=== PATIENT | female | born 1940 ===

== ENCOUNTER 2016-05-18 16:02 | Emergency (ER) | payer MEDICARE, MEDICAID ==
[2016-05-18 16:09] VITALS: BMI 21.1
[2016-05-18 16:13] VITALS: TEMP 97.5
--- NOTE | 2016-05-18 17:16 | C.PDOC ---
History Of Present Illness 76-year-old female, PMHx includes Anxiety, Vertigo on Meclizine, Cardiac Arrhythmia, and Depression, presents to the emergency department accompanied by daughter. Patient had a stress test in [place] five days ago, after which she was discharged home. Patient woke up that night with dizziness, falling on chest and sustained an injury to her face. States her dizziness is similar to prior vertigo symptoms. Patient is currently complaining of neck pain, headache , left sided chest pain that is pleuritic and reproducible, and right thigh pain. Patient denies nausea/vomiting, dizziness, visual changes, speech changes , weakness/numbness, or any other associated symptoms. No other complaints at this time. Time Seen by Provider: 05/18/16 16:39 Chief Complaint (Nursing): Chest Pain History Per: Patient History/Exam Limitations: no limitations Onset/Duration Of Symptoms: Days Current Symptoms Are (Timing): Still Present Severity: Moderate Past Medical History Reviewed: Historical Data, Nursing Documentation, Vital Signs Vital Signs: Last Vital Signs Temp 97.5 F L 05/18/16 16:10 Pulse 49 L 05/18/16 16:10 Resp 22 05/18/16 16:10 BP 162/89 H 05/18/16 16:10 Pulse Ox 100 05/18/16 18:42 - Medical History PMH: Anxiety, Cardia Arrhythmia (HOSPITALIZED 1 MONTH AGO FOR SLOW HEART RATE.) , Depression, Pneumonia (HOSPITALIZED 1 MONTH AGO) Denies: Chronic Kidney Disease Surgical History: Appendectomy, Cholecystectomy, Tonsillectomy - [facility] Procedures COLONOSCOPY (01/06/02) ESOPHAGOGASTRODUODENOSCOPY [EGD] W/CLOSED BIOPSY (01/06/02) PSYCHIAT DRUG THERAP NEC (11/16/00) Family History: States: Unknown Family Hx - Social History Hx Tobacco Use: Yes Hx Alcohol Use: No Hx Substance Use: No - Immunization History Hx Tetanus Toxoid Vaccination: No Hx Influenza Vaccination: No Hx Pneumococcal Vaccination: No Review Of Systems Except As Marked, All Systems Reviewed And Found Negative. Constitutional: Negative for: Fever, Chills Cardiovascular: Positive for: Chest Pain Respiratory: Negative for: Shortness of Breath Gastrointestinal: Negative for: Nausea, Vomiting Musculoskeletal: Positive for: Neck Pain, Leg Pain Skin: Negative for: Rash Neurological: Positive for: Headache Physical Exam - Physical Exam Appears: Non-toxic, No Acute Distress Skin: Warm, Dry, No Rash Head: Atraumatic, Normacephalic Eye(s): bilateral: Normal Inspection, PERRL, EOMI Nose: Normal, No Epistaxis, No Tenderness, Other (No swelling. No epistaxis. ) Oral Mucosa: Moist Lips: Swelling, No Laceration, Other (Left upper lip is swollen. No lacerations. ) Neck: No Midline Cervical Tenderness, Paracervical Tenderness, No Step Off Deformity Chest: No Deformity, Tenderness (Tenderness to palpation. Left lateral chest. Ribs 4 an 5), No Ecchymosis Cardiovascular: Rhythm Regular Respiratory: No Accessory Muscle Use, No Wheezing Gastrointestinal/Abdominal: Soft, No Tenderness Extremity: Other (Right upper femur tender mildly. No pain with pelvic rocking. No hip deformity) Neurological/Psych: Oriented x3, Normal Speech ED Course And Treatment - Laboratory Results Result Diagrams: 05/18/16 17:14 05/18/16 17:14 O2 Sat by Pulse Oximetry: 100 - CT Scan/US CT HEAD Other Rad Studies (CT/US): Read By Radiologist, Radiology Report Reviewed CT/US Interpretation: Accession No. : [id number]. Patient Name / ID : BLANCA Shrestha / [id number]. Exam Date : 05/18/2016 17:39:53 ( Approved ). Study Comment : Sex / Age : F / 76Y. Creator : Yaneli Modi MD. Dictator : Yaneli Modi MD. Marketing Intelligence Manager : Mechanical Ordnance Assembler : Yaneli Modi MD. Approver2 : Report Date : 05/18/2016 18:07:02. My Comment : . PROCEDURE: CT HEAD WITHOUT CONTRAST. HISTORY: S/P FALL. COMPARISON: Noncontrast head CT performed 02/25/16. TECHNIQUE: Axial computed tomography images were obtained through the head/brain without intravenous contrast. Radiation dose: Total exam DLP = 775.86 mGy-cm. This CT exam was performed using one or more of the following dose reduction techniques: Automated exposure control, adjustment of the mA and/or kV according to patient size, and/ or use of iterative reconstruction technique. FINDINGS: HEMORRHAGE: No intracranial hemorrhage. BRAIN: Diffuse atrophy with prominence of the ventricles and sulci noted. No mass effect or edema. Intracranial atherosclerotic calcifications. Scattered periventricular and subcortical white matter hypodensities, which are nonspecific, but often seen with chronic microvascular ischemic disease. Please note that MRI with diffusion imaging is more sensitive in the detection of acute ischemic event. VENTRICLES: No hydrocephalus. CALVARIUM: Unremarkable. PARANASAL SINUSES: Unremarkable as visualized. No significant inflammatory changes. MASTOID AIR CELLS: Unremarkable as visualized. No inflammatory changes. OTHER FINDINGS: None. IMPRESSION: Generalized atrophy. Scattered nonspecific white matter changes. CT orbits Other Rad Studies (CT/US): Read By Radiologist, Radiology Report Reviewed CT/US Interpretation: Accession No. : [id number]. Patient Name / ID : BLANCA Shrestha / [id number]. Exam Date : 05/18/2016 17:42:21 ( Approved ). Study Comment : Sex / Age : F / 76Y. Creator : Yaneli Modi MD. Dictator : Yaneli Modi MD. Marketing Intelligence Manager : Mechanical Ordnance Assembler : Yaneli Modi MD. Approver2 : Report Date : 05/18/2016 18:33:57. My Comment : . CT orbits without IV contrast. Indication: Status post fall, rule out facial fracture. Comparison: None available. Technique: Axial computed tomography images were obtained of the orbits without the use of intravenous contrast. Coronal and sagittal reformatted images were generated and reviewed. This CT exam was performed using 1 or more of the falling dose reduction techniques: Automated exposure control, adjustment of the MAA and/or kV according to patient size, and/or use of iterative reconstruction technique. Radiation dose: Total exam DLP = 750.73 mGy-cm. Findings: The facial bones appear intact without acute displaced fracture identified. The orbits appear unremarkable. The temporomandibular joints are located. The included portions of the mastoid air cells appear clear. The paranasal sinuses appear clear without air-fluid levels. The visualized brain appears unremarkable. Impression : No acute displaced fracture identified. Progress Note: Bloodwork, XR B/L Hips and ribs, CT Head/Orbits ordered and reviewed. Patient treated with PO Tylenol. Disposition Counseled Patient/Family Regarding: Studies Performed, Diagnosis, Need For Followup, Rx Given - Disposition Referrals: Esthela Ferguson DO [Doctor Osteopathy] - Abel Orozco MD [Staff Provider] - [facility] [Outside] Disposition: HOME/ ROUTINE Disposition Time: 18:40 Condition: STABLE Additional Instructions: FOLLOW UP WITH YOUR DOCTOR IN 1-2 DAYS USE MEDICATION NEEDED FOR PAIN RETURN TO ER IF SYMPTOMS WORSEN Prescriptions: Acetaminophen [Tylenol 325mg tab] 650 mg PO Q6 PRN #30 tab PRN Reason: pain/fever Acetaminophen with Codeine [Tylenol with Codeine #3 Tablet] 1 each PO Q6 PRN # 12 tablet PRN Reason: pain Instructions: Chest Wall Pain (ED), Facial Contusion (ED), Hip Sprain (ED) Print Language: IRISH - POA Present On Arrival: Falls Or Trauma - Clinical Impression Clinical Impression: Chest wall contusion, Contusion, hip, Contusion, lip, Peripheral vertigo - Scribe Statement The provider has reviewed the documentation as recorded by the Ryan Orozco All medical record entries made by the Carolyneibdaniele were at my direction and personally dictated by me. I have reviewed the chart and agree that the record accurately reflects my personal performance of the history, physical exam, medical decision making, and the department course for this patient. I have also personally directed, reviewed, and agree with the discharge instructions and disposition.
[2016-05-18 17:25] LABS: BASO % 0.7 % (0.0-2.0); EOS % 0.5 % (0.0-4.0); HEMATOCRIT 38.3 % (34.0-47.0); LYMPH # 1.7 K/uL (1.0-4.3); LYMPH % 29.8 % (20.0-40.0); MEAN CELL VOLUME 85.5 fL (81.0-99.0); MEAN CORPUSCULAR HEMOGLOBIN 27.5 pg (27.0-31.0); MEAN CORPUSCULAR HGB CONC 32.2 g/dL (33.0-37.0); MEAN PLATELET VOLUME 8.9 fL (7.2-11.7); MONO # 0.4 K/uL (0.0-0.8); MONO % 7.5 % (0.0-10.0); RED CELL DISTRIBUTION WIDTH 13.8 % (11.5-14.5); WHITE BLOOD COUNT 5.7 K/uL (4.8-10.8)
[2016-05-18 17:31] LABS: CHLORIDE 101 mmol/L (98-107)
[2016-05-18 17:32] LABS: SODIUM 143 mmol/L (132-148)
[2016-05-18 17:34] LABS: ALB/GLOB RATIO 1.4 (1.0-2.1); ALKALINE PHOSPHATASE 75 U/L (38-126); ALT/SGPT 16 U/L (9-52); AST/SGOT 23 U/L (14-36); BILIRUBIN,TOTAL 0.3 mg/dL (0.2-1.3); BLOOD UREA NITROGEN 5 mg/dL (7-17); CARBON DIOXIDE 27 mmol/L (22-30); GFR AFRICAN-AMERICAN > 60; TOTAL PROTEIN 6.8 g/dL (6.3-8.3)
[2016-05-18 17:35] LABS: CALCIUM 9.5 mg/dl (8.6-10.4); GLUCOSE,RANDOM 95 mg/dL (65-105)
--- NOTE | 2016-05-18 18:09 | CT ---
PROCEDURE: CT HEAD WITHOUT CONTRAST. HISTORY: S/P FALL COMPARISON: Noncontrast head CT performed 02/25/16 TECHNIQUE: Axial computed tomography images were obtained through the head/brain without intravenous contrast. Radiation dose: Total exam DLP = 775.86 mGy-cm. This CT exam was performed using one or more of the following dose reduction techniques: Automated exposure control, adjustment of the mA and/or kV according to patient size, and/or use of iterative reconstruction technique. FINDINGS: HEMORRHAGE: No intracranial hemorrhage. BRAIN: Diffuse atrophy with prominence of the ventricles and sulci noted. No mass effect or edema. Intracranial atherosclerotic calcifications. Scattered periventricular and subcortical white matter hypodensities, which are nonspecific, but often seen with chronic microvascular ischemic disease. Please note that MRI with diffusion imaging is more sensitive in the detection of acute ischemic event. VENTRICLES: No hydrocephalus. CALVARIUM: Unremarkable. PARANASAL SINUSES: Unremarkable as visualized. No significant inflammatory changes. MASTOID AIR CELLS: Unremarkable as visualized. No inflammatory changes. OTHER FINDINGS: None. IMPRESSION: Generalized atrophy. Scattered nonspecific white matter changes.
--- NOTE | 2016-05-18 18:35 | CT ---
CT orbits without IV contrast Indication: Status post fall, rule out facial fracture Comparison: None available. Technique: Axial computed tomography images were obtained of the orbits without the use of intravenous contrast. Coronal and sagittal reformatted images were generated and reviewed. This CT exam was performed using 1 or more of the falling dose reduction techniques: Automated exposure control, adjustment of the MAA and/or kV according to patient size, and/or use of iterative reconstruction technique. Radiation dose: Total exam DLP = 750.73 mGy-cm. Findings: The facial bones appear intact without acute displaced fracture identified. The orbits appear unremarkable. The temporomandibular joints are located. The included portions of the mastoid air cells appear clear. The paranasal sinuses appear clear without air-fluid levels. The visualized brain appears unremarkable. Impression: No acute displaced fracture identified.
[2016-05-18 19:06] VITALS: BP 168/76; PULSE 45; RESP 18; O2SAT 98
--- NOTE | 2016-05-19 09:03 | RAD ---
PROCEDURE: HISTORY: S/P FALL, R/O FX HIP/PELVIS COMPARISON: 03/14/2012 TECHNIQUE: AP view of the pelvis and applicable frog leg views obtained. FINDINGS: Generalized osteopenia. No fractures seen. Bilateral axial hip joint space narrowing minimal bilateral acetabular spurring. Moderate to severe osteitis pubis. Left L5-S1 Modic facet arthrosis Interval 3 x 7 mm homogeneous calcification projecting just superior to the left greater trochanteric perhaps calcific bursitis or left gluteal calcific tendinosis here an osseous avulsion is believe less likely the surrounding thin fat planes appear intact Distended bladder. Bilateral hemipelvic phleboliths IMPRESSION: No interval fracture dislocation. Osteoarthrosis If symptoms persist/warrant consider MRI.
--- NOTE | 2016-05-19 09:13 | RAD ---
PROCEDURE: Radiographs of the chest and bilateral ribs HISTORY: S/P FALL ON CHEST, CHEST PAIN, R/O LEFT RIB FX COMPARISON: 02/25/2016 chest x-ray TECHNIQUE: Frontal radiograph of the chest and multiple oblique radiographs of the bilateral ribs were obtained. FINDINGS: RIGHT RIBS: No fracture or focal lesion visualized. LEFT RIBS: No fracture or focal lesion visualized. LUNGS: Bilateral benign calcified granulomas appear similar PLEURA: No pneumothorax or pleural fluid. CARDIOVASCULAR: Mild cardiomegaly as before. Tortuous unfolded/ ectatic thoracic aorta No pulmonary vascular congestion. OTHER FINDINGS: Right upper quadrant post cholecystectomy clips IMPRESSION: . No rib fracture. No interval cardiopulmonary pathology suggested
--- NOTE | 2016-06-04 14:43 | CARD ---
APPROVED REPORT EKG Measurement Heart [id number] <Conclusion> Sinus bradycardia Otherwise normal ECG
== END 2016-05-18 19:10 | disposition home or self-care (01) ==
LOC: C.ER 16:02
DX: S20.212A Contusion of left front wall of thorax, initial encounter (principal); S70.01XA Contusion of right hip, initial encounter; W19.XXXA Unspecified fall, initial encounter; Y92.009 Unspecified place in unspecified non-institutional (private) residence as the place of occurrence of the external cause; H81.399 Other peripheral vertigo, unspecified ear

== ENCOUNTER 2016-11-02 15:22 | Emergency (ER) | payer OTHER, MEDICAID ==
[2016-11-02 15:22] VITALS: BMI 21.3
--- NOTE | 2016-11-02 15:43 | C.PDOC ---
History Of Present Illness 76 y/o female, history of anxiety and depression, recently diagnosed with CAD with cardiac stent placed last May, known history of bradycardia, presents to ER with c/o chest pain associated with cough, green sputum, and low grade fever. Now, patient c/o dizziness, lightheadedness, nausea, and 1 episode of vomiting this morning. Patient was brought to ER by daughter who felt that she did not look well when she visited her this morning. Patient also c/o "total body pain" for several months. Denies feeling SOB at the moment; states SOB presents in spasms when coughing. Time Seen by Provider: 11/02/16 15:25 Chief Complaint (Nursing): Chest Pain History Per: Patient, Family History/Exam Limitations: no limitations Onset/Duration Of Symptoms: Days Current Symptoms Are (Timing): Still Present Recent travel outside of the [place]: No Past Medical History Reviewed: Historical Data, Nursing Documentation, Vital Signs Vital Signs: Last Vital Signs Temp 98.1 F 11/02/16 18:12 Pulse 46 L 11/02/16 18:12 Resp 13 11/02/16 18:12 BP 154/72 H 11/02/16 18:12 Pulse Ox 97 11/02/16 18:12 - Medical History PMH: Anxiety, Cardia Arrhythmia (HOSPITALIZED 1 MONTH AGO FOR SLOW HEART RATE.) , Depression, Pneumonia (HOSPITALIZED 1 MONTH AGO) Surgical History: Appendectomy, Cholecystectomy, Tonsillectomy Denies: Pacemaker - [facility] Procedures COLONOSCOPY (01/06/02) ESOPHAGOGASTRODUODENOSCOPY [EGD] W/CLOSED BIOPSY (01/06/02) PSYCHIAT DRUG THERAP NEC (11/16/00) Family History: States: Unknown Family Hx - Social History Hx Tobacco Use: Yes Hx Alcohol Use: No Hx Substance Use: No - Immunization History Hx Tetanus Toxoid Vaccination: No Hx Influenza Vaccination: No Hx Pneumococcal Vaccination: No Review Of Systems Except As Marked, All Systems Reviewed And Found Negative. Constitutional: Positive for: Malaise. Negative for: Fever, Chills Cardiovascular: Positive for: Chest Pain Respiratory: Positive for: Cough, Sputum. Negative for: Shortness of Breath Gastrointestinal: Positive for: Nausea, Vomiting. Negative for: Abdominal Pain Musculoskeletal: Negative for: Neck Pain Skin: Negative for: Rash Neurological: Positive for: Dizziness. Negative for: Headache Physical Exam - Physical Exam Appears: Non-toxic, Other (uncomfortable, no acute distress) Skin: Warm, Dry Head: Atraumatic, Normacephalic Oral Mucosa: Moist Chest: Symmetrical Cardiovascular: Rhythm Regular (heidi) Respiratory: Normal Breath Sounds, No Accessory Muscle Use, No Rales, No Rhonchi , No Wheezing Gastrointestinal/Abdominal: Soft, No Tenderness, No Guarding, No Rebound Back: Normal Inspection Extremity: Normal ROM, No Pedal Edema, Capillary Refill (< 2 sec.) Extremity: Bilateral: Normal Color And Temperature Neurological/Psych: Oriented x3, Normal Speech, Normal Cognition ED Course And Treatment - Laboratory Results Result Diagrams: 11/02/16 16:16 11/02/16 16:16 Lab Interpretation: Normal ECG: Interpreted By Me ECG Rhythm: Sinus Bradycardia ECG Interpretation: No Acute Changes O2 Sat by Pulse Oximetry: 98 (RA) Pulse Ox Interpretation: Normal - Radiology CXR: Viewed By Me, Read By Radiologist CXR Interpretation: Yes: No Acute Disease Progress Note: EKG, CxR, bloodwork ordered and reviewed. Patient treated with 1 liter of saline. Reevaluation Time: 17:02 Reassessment Condition: Improved (Patient remains comfortable in ED without evidence of cough or shortness of breath.) Disposition Counseled Patient/Family Regarding: Studies Performed, Diagnosis, Need For Followup, Rx Given - Disposition Disposition: HOME/ ROUTINE Disposition Time: 18:18 Condition: IMPROVED Additional Instructions: Follow up with your doctor in the office as an out patient. Please return to the ED for any worsening of symptoms, chest pain or shortness of breath. Prescriptions: Amoxicillin 875 mg PO BID #20 tablet Instructions: Upper Respiratory Infection (ED) Forms: [employer] (Georgian) - Clinical Impression Clinical Impression: Upper respiratory infection - Scribe Statement The provider has reviewed the documentation as recorded by the Scribe SM All medical record entries made by the Scribe were at my direction and personally dictated by me. I have reviewed the chart and agree that the record accurately reflects my personal performance of the history, physical exam, medical decision making, and the department course for this patient. I have also personally directed, reviewed, and agree with the discharge instructions and disposition.
[2016-11-02 16:34] LABS: CHLORIDE 109 mmol/L (98-107); SODIUM 142 mmol/L (132-148)
[2016-11-02 16:35] LABS: POTASSIUM 3.6 mmol/L (3.6-5.2)
[2016-11-02 16:37] LABS: ALB/GLOB RATIO 1.3 (1.0-2.1); ALKALINE PHOSPHATASE 81 U/L (38-126); ALT/SGPT 21 U/L (9-52); AST/SGOT 23 U/L (14-36); BASO % 0.6 % (0.0-2.0); BILIRUBIN,TOTAL 0.7 mg/dL (0.2-1.3); BLOOD UREA NITROGEN 11 mg/dL (7-17); CALCIUM 10.1 mg/dl (8.6-10.4); CARBON DIOXIDE 20 mmol/L (22-30); GFR AFRICAN-AMERICAN > 60; GLUCOSE,RANDOM 75 mg/dL (65-105); MONO # 0.6 K/uL (0.0-0.8); TOTAL PROTEIN 7.6 g/dL (6.3-8.3); WHITE BLOOD COUNT 5.6 K/uL (4.8-10.8)
[2016-11-02 16:40] LABS: EOS % 0.6 % (0.0-4.0); HEMATOCRIT 40.7 % (34.0-47.0); LYMPH % 35.9 % (20.0-40.0); MEAN CELL VOLUME 86.6 fL (81.0-99.0); MEAN CORPUSCULAR HEMOGLOBIN 28.4 pg (27.0-31.0); MEAN CORPUSCULAR HGB CONC 32.8 g/dL (33.0-37.0); MEAN PLATELET VOLUME 8.7 fL (7.2-11.7); MONO % 10.2 % (0.0-10.0); NRBC % 0.1 % (0.0-2.0); RED CELL DISTRIBUTION WIDTH 13.6 % (11.5-14.5)
[2016-11-02] MEDS ORDERED: Sodium Chloride 0.9% 1,000 ML IV ONE (16:46)
--- NOTE | 2016-11-02 16:53 | RAD ---
HISTORY: chest pain COMPARISON: Chest x-ray performed 05/18/16 TECHNIQUE: Chest, one view. FINDINGS: Examination limited by habitus. LUNGS: Biapical pleural thickening. No focal consolidation. 4 mm calcified granuloma, right mid lung zone. Additional nonspecific calcifications/granulomas within the right upper lobe. Please note that chest x-ray has limited sensitivity for the detection of pulmonary masses. PLEURA: No significant pleural effusion identified. No definite pneumothorax . CARDIOVASCULAR: Heart size appears within limits. Ectatic aorta. Atherosclerotic calcifications. OSSEOUS STRUCTURES: Degenerative changes. VISUALIZED UPPER ABDOMEN: Unremarkable. OTHER FINDINGS: None. IMPRESSION: No focal consolidation, significant pleural effusion, or definite pneumothorax identified.
[2016-11-02 18:13] VITALS: BP 154/72; PULSE 46; RESP 13; TEMP 98.1
[2016-11-02 18:19] VITALS: O2SAT 98
== END 2016-11-02 18:35 | disposition home or self-care (01) ==
LOC: C.ER 15:22
DX: J06.9 Acute upper respiratory infection, unspecified (principal); I25.10 Atherosclerotic heart disease of native coronary artery without angina pectoris; I49.9 Cardiac arrhythmia, unspecified; F17.210 Nicotine dependence, cigarettes, uncomplicated
CPT/HCPCS: 71010; 80053; 83690; 84484; 85025; 87040; 96360; 99285; J7040

== ENCOUNTER 2017-02-22 15:30 | Emergency (ER) | payer MEDICARE, MEDICAID ==
[2017-02-22 15:30] VITALS: BMI 21.3
[2017-02-22 16:02] VITALS: PULSE 60; O2SAT 98
--- NOTE | 2017-02-22 16:25 | C.PDOC ---
History Of Present Illness Patient complains she slipped and fell in bathtub 5 days ago and hit her left side of chest on bathtub. Patient complains of pain to ribs. She states pain worse with movement and deep inspiration. Denies any fever, cough, sputum. Time Seen by Provider: 02/22/17 16:22 Chief Complaint (Nursing): Rib Injury History Per: Patient History/Exam Limitations: no limitations Onset/Duration Of Symptoms: Days (5) Past Medical History Reviewed: Historical Data, Nursing Documentation, Vital Signs Vital Signs: Last Vital Signs Temp 98.5 F 02/22/17 17:26 Pulse 60 02/22/17 17:26 Resp 18 02/22/17 17:26 BP 144/81 02/22/17 17:26 Pulse Ox 98 02/22/17 17:26 - Medical History PMH: Anxiety, Cardia Arrhythmia, Depression, Pneumonia Surgical History: Appendectomy, Cholecystectomy, Tonsillectomy - [facility] Procedures COLONOSCOPY (01/06/02) ESOPHAGOGASTRODUODENOSCOPY [EGD] W/CLOSED BIOPSY (01/06/02) PSYCHIAT DRUG THERAP NEC (11/16/00) Family History: States: Unknown Family Hx - Social History Hx Tobacco Use: Yes Hx Alcohol Use: No Hx Substance Use: No - Immunization History Hx Tetanus Toxoid Vaccination: No Hx Influenza Vaccination: No Hx Pneumococcal Vaccination: No Review Of Systems Except As Marked, All Systems Reviewed And Found Negative. Cardiovascular: Positive for: Other (rib pain) Physical Exam - Physical Exam Appears: Non-toxic, No Acute Distress Skin: Warm, Dry Head: Atraumatic, Normacephalic Eye(s): bilateral: Normal Inspection, EOMI Neck: Normal ROM Chest: Symmetrical, Tenderness (to left anterior ribs 5-7 ), No Ecchymosis, No Subcutaneous Emphysema Cardiovascular: Rhythm Regular, No Murmur Respiratory: Normal Breath Sounds, No Accessory Muscle Use, No Rhonchi, No Wheezing Back: Normal Inspection, No Decreased ROM Extremity: Bilateral: Atraumatic, Normal Color And Temperature, Normal ROM Neurological/Psych: Oriented x3, Normal Speech Gait: Steady ED Course And Treatment O2 Sat by Pulse Oximetry: 98 Medical Decision Making Medical Decision Making: Patient with chest injury and rib pain. Xray ordered Xray read by radiologist Unremarkable radiographs of the chest and left ribs. No left rib fracture. Patient given copy of xray report. Advise ice and analgesics as needed. Follow up with primary doctor. Disposition Counseled Patient/Family Regarding: Diagnosis, Need For Followup, Rx Given - Disposition Referrals: Reid Henriquez MD [Medical Doctor] - Disposition: HOME/ ROUTINE Disposition Time: 16:55 Condition: STABLE Additional Instructions: Por favor, teresita un seguimiento con woo mdico para obtener ms cuidados Braydon x no muestra fractura costal severiano ibuprofeno para el dolor severiano tramadol para un dolor ms lynn puede aplicar hielo al erik Prescriptions: traMADol [Ultram] 50 mg PO Q8 #14 tab Instructions: Rib Contusion (ED) Forms: [facility] (Yakut) Print Language: MONGOLIAN - POA Present On Arrival: None - Clinical Impression Clinical Impression: Rib contusion
--- NOTE | 2017-02-22 16:45 | RAD ---
PROCEDURE: Radiographs of the Chest and Left Ribs. HISTORY: pain s.p fall COMPARISON: 11/02/2016. TECHNIQUE: Frontal radiograph of the chest and multiple oblique radiographs of the left ribs were obtained. FINDINGS: LEFT RIBS: No fracture or focal lesion visualized. LUNGS: No significant interval change compared to the prior examination(s). PLEURA: No pneumothorax or pleural fluid. CARDIOVASCULAR: Normal sized heart. No pulmonary vascular congestion. OTHER FINDINGS: None. IMPRESSION: Unremarkable radiographs of the chest and left ribs. No left rib fracture.
[2017-02-22 17:29] VITALS: BP 144/81; RESP 18; TEMP 98.5
== END 2017-02-22 17:28 | disposition home or self-care (01) ==
LOC: C.ER 15:30
DX: S20.212A Contusion of left front wall of thorax, initial encounter (principal); W18.2XXA Fall in (into) shower or empty bathtub, initial encounter; Y93.E1 Activity, personal bathing and showering; Y92.002 Bathroom of unspecified non-institutional (private) residence as the place of occurrence of the external cause
CPT/HCPCS: 71101; 96372; 99284; J1885

== ENCOUNTER 2017-03-13 09:13 | Day surgery (SDC) | payer MEDICARE, MEDICAID ==
[2017-03-13 10:10] VITALS: BMI 20.2
[2017-03-13] MEDS ORDERED: Etomidate 20 mg/10ml Inj IV ONE ×2 (13:33→13:59)
[2017-03-13] MEDS ORDERED: Lidocaine 1% Inj (20ml) ONE (13:34)
[2017-03-13] MEDS ORDERED: Propofol 10 mg/ml Inj (20 ML) ONE (13:34)
[2017-03-13] MEDS ORDERED: ePHEDrine 50 mg/ml Inj ONE (13:35)
[2017-03-13] MEDS ORDERED: Lactated Ringer's 1,000 ML IV ONE (13:38)
--- NOTE | 2017-03-13 13:38 | CP.SDSHP ---
Same Day Surgery H & P - History Proposed Procedure: egd/colon Pre-Op Diagnosis: epigastric pain. crc screen - Previous Medical/Surgical History Cardiac: Arrhythmia - Allergies Allergies: Allergies No Known Allergies Allergy (Verified 03/13/17 10:10) - Physical Exam General Appearance: nl Vital Signs: Vital Signs 03/13/17 09:30 Temperature 97 F L Pulse Rate 55 L Respiratory 14 Rate Blood Pressure 112/61 O2 Sat by Pulse 98 Oximetry Mental Status: Alert & Oriented x3 Neuro: WNL Heart: WNL Lungs: WNL GI: WNL - {Optional Preform as Required} Abdomen: WNL - Impression Impression: epigastric pain. egd. colon ca screen Pt. Evaluated Today:Candidate for Anesthesia & Procedure: Yes - Date & Time Date: 03/13/17 Time: 13:38 Short Stay Discharge - Short Stay Discharge Admitting Diagnosis/Reason for Visit: EPIGASTRIC PAIN / SCREENING Disposition: HOME/ ROUTINE
[2017-03-13 13:51] VITALS: O2SAT 100
[2017-03-13 14:36] VITALS: TEMP 97.3
[2017-03-13 14:47] VITALS: PULSE 58
[2017-03-13 15:06] VITALS: BP 142/77; RESP 13
== END 2017-03-13 15:40 | disposition home or self-care (01) ==
LOC: C.ENDO 09:13
PROVIDERS: ATTEND Internal Medicine
DX: Z12.11 Encounter for screening for malignant neoplasm of colon (principal); R10.13 Epigastric pain; K64.8 Other hemorrhoids; K29.70 Gastritis, unspecified, without bleeding
CPT/HCPCS: 43239; 45380; 88305; J2405; J2704; J3010; J7120

== ENCOUNTER 2017-08-23 17:27 | Emergency (ER) | payer MEDICARE, MEDICAID ==
[2017-08-23 17:28] VITALS: BMI 20.2
[2017-08-23 17:45] VITALS: RESP 20
[2017-08-23] MEDS ORDERED: Sodium Chloride 0.9% 1,000 ML IV ONE (17:57)
[2017-08-23] MEDS ORDERED: Sodium Chloride 0.9% 1,000 ML ONE (18:05)
[2017-08-23 18:18] LABS: BASO % 0.6 % (0.0-2.0); EOS # 0.1 K/uL (0.0-0.7); EOS % 1.3 % (0.0-4.0); HEMOGLOBIN 12.8 g/dL (11.0-16.0); LYMPH % 45.6 % (20.0-40.0); MEAN CELL VOLUME 85.4 fL (81.0-99.0); MEAN CORPUSCULAR HEMOGLOBIN 28.7 pg (27.0-31.0); MEAN CORPUSCULAR HGB CONC 33.6 g/dL (33.0-37.0); MEAN PLATELET VOLUME 8.1 fL (7.2-11.7); MONO # 0.3 K/uL (0.0-0.8); MONO % 4.5 % (0.0-10.0); NEUT # 3.2 K/uL (1.8-7.0); NRBC % 0.1 % (0.0-2.0); RBC 4.45 Mil/uL (3.80-5.20); RED CELL DISTRIBUTION WIDTH 12.9 % (11.5-14.5); WHITE BLOOD COUNT 6.6 K/uL (4.8-10.8)
--- NOTE | 2017-08-23 18:32 | C.PDOC ---
History Of Present Illness 77-year-old female, PMHx includes cardiac disease s/p pacemaker, presents to the emergency department accompanied by daughter with complaints of generalized weakness. Patient has been experiencing loss of appetite, dizziness, unsteady gait, vague generalized abdominal pain and urinary frequency. Patient denies any diarrhea, vomiting, fever, cough, chest pain or any other associated symptoms. No other complaints at this time.The abdominal pain has been chronic and she recently had endoscopy that was reported as normal. Time Seen by Provider: 08/23/17 17:49 Chief Complaint (Nursing): Weakness/Neurological Deficit History Per: Patient, Family History/Exam Limitations: no limitations Current Symptoms Are (Timing): Still Present Past Medical History Reviewed: Historical Data, Nursing Documentation, Vital Signs Vital Signs: Last Vital Signs Temp 98.1 F 08/23/17 17:40 Pulse 60 08/23/17 19:24 Resp 20 08/23/17 19:24 BP 144/76 08/23/17 19:24 Pulse Ox 96 08/23/17 19:54 - Medical History PMH: Anxiety, Arthritis, Cardia Arrhythmia, Depression, Osteoporosis, Pneumonia Denies: Chronic Kidney Disease Surgical History: Appendectomy, Cholecystectomy, Pacemaker, Tonsillectomy - [facility] Procedures COLONOSCOPY (01/06/02) ESOPHAGOGASTRODUODENOSCOPY [EGD] W/CLOSED BIOPSY (01/06/02) PSYCHIAT DRUG THERAP NEC (11/16/00) Family History: States: No Known Family Hx - Social History Hx Tobacco Use: Yes Hx Alcohol Use: No Hx Substance Use: No - Immunization History Hx Tetanus Toxoid Vaccination: No Hx Influenza Vaccination: No Hx Pneumococcal Vaccination: No Review Of Systems Constitutional: Positive for: Weakness. Negative for: Fever Cardiovascular: Positive for: Light Headedness. Negative for: Chest Pain Respiratory: Negative for: Cough, Shortness of Breath Gastrointestinal: Positive for: Abdominal Pain. Negative for: Nausea, Vomiting , Diarrhea Genitourinary: Positive for: Frequency. Negative for: Dysuria, Hematuria Musculoskeletal: Negative for: Neck Pain, Back Pain Neurological: Positive for: Dizziness. Negative for: Headache Physical Exam - Physical Exam Appears: Non-toxic, No Acute Distress, Other (frail) Skin: Normal Color, Warm, Dry, No Rash Head: Atraumatic, Normacephalic Eye(s): bilateral: Normal Inspection, PERRL, EOMI Nose: Normal Oral Mucosa: Moist Neck: Normal ROM Chest: Symmetrical Cardiovascular: Rhythm Regular, No Murmur Respiratory: No Accessory Muscle Use, Rales (bibasilar) Gastrointestinal/Abdominal: Soft, Tenderness, No Guarding, No Rebound Extremity: Normal ROM, No Deformity, No Swelling Neurological/Psych: Oriented x3, Normal Speech ED Course And Treatment - Laboratory Results Result Diagrams: 08/23/17 18:13 08/23/17 18:13 Lab Interpretation: Abnormal (urine nitrite positive) O2 Sat by Pulse Oximetry: 96 (RA) Pulse Ox Interpretation: Normal Progress Note: Patient treated in ED with IV Rocephin. She is much better and seems more laert and comfortable. She feels she is able to go home and care for herself. Disposition Counseled Patient/Family Regarding: Studies Performed, Diagnosis, Need For Followup, Rx Given - Disposition Referrals: Esthela Ferguson DO [[facility]] - Disposition: HOME/ ROUTINE Disposition Time: 19:57 Condition: STABLE Prescriptions: Dicyclomine [Bentyl] 20 mg PO QID PRN #20 tab PRN Reason: Pain, Severe (8-10) Sulfamethoxazole/Trimethoprim [Bactrim DS 800 mg-160 mg] 1 tab PO BID #14 tab Forms: [facility] (Hungarian) - Clinical Impression Clinical Impression: UTI (urinary tract infection) - Scribe Statement The provider has reviewed the documentation as recorded by the Scribe (Sarah Orozco) All medical record entries made by the Scribe were at my direction and personally dictated by me. I have reviewed the chart and agree that the record accurately reflects my personal performance of the history, physical exam, medical decision making, and the department course for this patient. I have also personally directed, reviewed, and agree with the discharge instructions and disposition.
[2017-08-23 18:36] LABS: ALB/GLOB RATIO 1.4 (1.0-2.1); ALT/SGPT 28 U/L (9-52); AST/SGOT 23 U/L (14-36); BLOOD UREA NITROGEN 8 mg/dL (7-17); CALCIUM 9.8 mg/dl (8.6-10.4); GFR AFRICAN-AMERICAN > 60; GFR NON-AFRICAN AMERICAN > 60; LIPASE 97 U/L (23-300)
--- NOTE | 2017-08-23 18:59 | RAD ---
Date of service: 08/23/2017 PROCEDURE: CHEST RADIOGRAPH, 1 VIEW HISTORY: SOB COMPARISON: Chest radiograph dated 02/22/2017. FINDINGS: LUNGS: Peripheral right lung nodule calcified granuloma redemonstrated. Focal consolidation. PLEURA: No pneumothorax or pleural fluid seen. CARDIOVASCULAR: Left subclavian access pacemaker. Atherosclerotic aortic calcifications. Cardiomediastinal silhouette stably enlarged. OSSEOUS STRUCTURES: Unchanged. VISUALIZED UPPER ABDOMEN: Normal. OTHER FINDINGS: None. IMPRESSION: No active disease.
[2017-08-23 19:38] LABS: SQUAMOUS EPITHIAL < 1 /hpf (0-5); URINE BACTERIA OCC (<OCC); URINE BILIRUBIN NEGATIVE (NEGATIVE); URINE BLOOD NEGATIVE (NEGATIVE); URINE CLARITY Clear (Clear); URINE COLOR Yellow (YELLOW); URINE GLUCOSE (UA) NORMAL (Normal); URINE LEUKOCYTE ESTERASE NEG Leu/uL (Negative); URINE PROTEIN NEGATIVE (NEGATIVE); URINE UROBILINOGEN NORMAL mg/dL (0.2-1.0)
[2017-08-23] MEDS ORDERED: cefTRIAXone IV 1 gm in Dextros 50 ML IVPB ONE ×2 (19:42→19:49)
[2017-08-23 20:34] VITALS: BP 147/80; PULSE 64; TEMP 97.8; O2SAT 100
--- NOTE | 2017-08-25 12:08 | CARD ---
APPROVED REPORT Date of service: 08/23/2017 EKG Measurement Heart [id number] <Conclusion> Atrial-paced rhythm Abnormal ECG
== END 2017-08-23 20:33 | disposition home or self-care (01) ==
LOC: C.ER 17:27
DX: N39.0 Urinary tract infection, site not specified (principal)
CPT/HCPCS: 71045; 80053; 81001; 82948; 83690; 83735; 85025; 87086; 96361; 96365; 99285; J0696; J7030

== ENCOUNTER 2017-11-29 16:21 | Emergency (ER) | payer MEDICARE, MEDICAID ==
[2017-11-29 16:21] VITALS: BMI 20.2
[2017-11-29 16:44] VITALS: RESP 18; O2SAT 98
[2017-11-29] MEDS ORDERED: Oxycodone/Acetaminophen 5/325 mg Tab PO STA (17:07)
[2017-11-29] MEDS ORDERED: Oxycodone/Acetaminophen 5/325 mg Tab ONE (17:28)
--- NOTE | 2017-11-29 17:38 | C.PDOC ---
History Of Present Illness 77 year old female presents to the ED for evaluation of right-sided rib pain s/p injury for 5 days. Per daughter a closet door became unhinged and fell onto the patient resulting in rib pain. Daughter also notes the patient took Tylenol x2 with no relief. Denies fever, vomiting, numbness, tingling and numbness. Time Seen by Provider: 11/29/17 16:50 Chief Complaint (Nursing): Rib Injury History Per: Patient, Family (daughter.) History/Exam Limitations: no limitations Onset/Duration Of Symptoms: Days Current Symptoms Are (Timing): Still Present Past Medical History Reviewed: Historical Data, Nursing Documentation, Vital Signs Vital Signs: Last Vital Signs Temp 97.6 F 11/29/17 16:41 Pulse 60 11/29/17 16:41 Resp 18 11/29/17 16:41 BP 143/83 11/29/17 16:41 Pulse Ox 98 11/29/17 16:41 - Medical History PMH: Anxiety, Arthritis, Cardia Arrhythmia, Depression, Osteoporosis, Pneumonia Denies: Chronic Kidney Disease Surgical History: Appendectomy, Cholecystectomy, Coronary Stent, Pacemaker, To nsillectomy - [facility] Procedures COLONOSCOPY (01/06/02) ESOPHAGOGASTRODUODENOSCOPY [EGD] W/CLOSED BIOPSY (01/06/02) PSYCHIAT DRUG THERAP NEC (11/16/00) Family History: States: Unknown Family Hx - Social History Hx Tobacco Use: Yes Hx Alcohol Use: No Hx Substance Use: No - Immunization History Hx Tetanus Toxoid Vaccination: No Hx Influenza Vaccination: No Hx Pneumococcal Vaccination: No Review Of Systems Constitutional: Negative for: Fever Gastrointestinal: Negative for: Nausea, Vomiting Musculoskeletal: Positive for: Other (right-sided rib pain.) Neurological: Negative for: Weakness, Numbness, Incoordination Physical Exam - Physical Exam Appears: Well, Non-toxic, No Acute Distress Skin: Warm, Dry Head: Atraumatic, Normacephalic Eye(s): bilateral: Normal Inspection, EOMI Oral Mucosa: Moist Neck: Normal ROM, Supple Chest: Symmetrical, No Deformity, Tenderness (to the right side of the chest. tenderness to the lateral rib area under the right breast.), No Ecchymosis, No Subcutaneous Emphysema Cardiovascular: Rhythm Regular, No Murmur Respiratory: Normal Breath Sounds (equal breath sounds. ), No Rales, No Rhonchi, No Wheezing Gastrointestinal/Abdominal: Normal Exam, Soft, No Tenderness Extremity: Bilateral: Atraumatic, Normal Color And Temperature, Normal ROM Neurological/Psych: Oriented x3, Normal Speech Gait: Steady ED Course And Treatment ECG: Interpreted By Me, Viewed By Me ECG Rhythm: Sinus Rhythm Rate From EC (LAD) O2 Sat by Pulse Oximetry: 98 (RA) Pulse Ox Interpretation: Normal Medical Decision Making Medical Decision Making: Plan: --X-ray Rib and Chest --Oxycodone/Acetaminophen Xray viewed by me and ED attending, shows no rib fracture. On re-evaluation patient reports pain has minimally improved. I explained result to patient and daughter at bedside. Recommend rest and analgesics Disposition Counseled Patient/Family Regarding: Diagnosis, Need For Followup, Rx Given - Disposition Referrals: [facility] [Outside] [facility] [Outside] [facility] [Outside] Disposition: HOME/ ROUTINE Disposition Time: 18:01 Condition: STABLE Additional Instructions: Your x-ray was normal, no fracture. Please apply ice to area 15 minutes three times a day. Take Motrin as needed for pain every 6 hours, with food to not upset stomach. Take Percocet for severe pain every 8 hours as needed, caution can cause drowsiness. Follow up with your doctor. Prescriptions: Ibuprofen [Motrin] 600 mg PO DAILY #30 tab oxyCODONE/Acetaminophen [Percocet 5/325 mg Tab] 1 tab PO Q8 PRN #15 tab PRN Reason: Pain, Severe (8-10) Instructions: Bruised Rib (DC) Print Language: AZERI - POA Present On Arrival: None - Clinical Impression Clinical Impression: Rib contusion - PA / POWDER [employer]IXER / Resident Statement MD/DO has reviewed & agrees with the documentation as recorded. - Scribe Statement The provider has reviewed the documentation as recorded by the Scribe (Samara Mojica) All medical record entries made by the Scribe were at my direction and personally dictated by me. I have reviewed the chart and agree that the record accurately reflects my personal performance of the history, physical exam, medical decision making, and the department course for this patient. I have also personally directed, reviewed, and agree with the discharge instructions and disposition.
[2017-11-29 18:21] VITALS: BP 136/79; PULSE 79; TEMP 98
--- NOTE | 2017-11-29 18:43 | RAD ---
Date of service: 11/29/2017 PROCEDURE: Radiographs of the Chest and Right Ribs. HISTORY: pain s.p fall COMPARISON: Chest x-ray performed 08/23/17 TECHNIQUE: Frontal radiograph of the chest and multiple oblique radiographs of the right ribs were obtained. FINDINGS: RIGHT RIBS: No appreciable displaced fracture identified. LUNGS: No focal consolidation. Biapical pleural thickening. Granulomatous changes including calcified granuloma measuring 4 mm at the right lower lobe. Patchy calcifications noted bilaterally in the upper lobes. PLEURA: No significant pleural effusion. No definite pneumothorax. CARDIOVASCULAR: Heart size appears within normal limits. Dual lead left-sided pacemaker. Mild atherosclerotic calcification of the aorta. OTHER FINDINGS: Right upper quadrant surgical clips. IMPRESSION: No appreciable displaced right rib fracture. Biapical pleural thickening and granulomatous changes as above.
== END 2017-11-29 18:21 | disposition home or self-care (01) ==
LOC: C.ER 16:21
DX: S20.211A Contusion of right front wall of thorax, initial encounter (principal); W22.8XXA Striking against or struck by other objects, initial encounter

== ENCOUNTER 2018-06-18 14:33 | Outpatient (CLI) | payer MEDICARE, MEDICAID | END 2018-06-18 14:34 | disposition home or self-care (01) | LOC: C.RADH 14:33 | DX: F17.200 Nicotine dependence, unspecified, uncomplicated (principal); R73.09 Other abnormal glucose ==

== ENCOUNTER 2018-07-05 10:51 | Outpatient (CLI) | payer MEDICARE, MEDICAID | END 2018-07-05 10:52 | disposition home or self-care (01) | LOC: C.CTH 10:52 ==